=== PATIENT | female | born 1995 | race African-American/Black ===

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

== ENCOUNTER 2017-03-05 23:38 | Emergency (ER) | payer MEDICAID ==
[~2017-03-05] VITALS: Ht 177.8 cm; Wt 73.0 kg
[2017-03-05 23:51] VITALS: BP 111/81
== END 2017-03-06 07:27 | disposition home or self-care (01) ==
LOC: ER 03-06 00:04
DX: S50.862A Insect bite (nonvenomous) of left forearm, initial encounter (principal); S50.861A Insect bite (nonvenomous) of right forearm, initial encounter; W57.XXXA Bitten or stung by nonvenomous insect and other nonvenomous arthropods, initial encounter; Y93.89 Activity, other specified; Y92.89 Other specified places as the place of occurrence of the external cause; Y99.8 Other external cause status
CPT/HCPCS: 99282

== ENCOUNTER 2017-03-23 16:24 | Emergency (ER) | payer MEDICAID ==
[~2017-03-23] VITALS: Ht 177.8 cm; Wt 80.0 kg
[2017-03-23 20:38] VITALS: BP 128/65
[2017-03-23] MEDS ORDERED: MAGNESIUM/ALUMINUM HYDROXIDE/SIMETHICONE 30ML UDC PO STA (20:39)
[2017-03-23] MEDS ORDERED: FAMOTIDINE 20MG TABLET PO ONE (20:45)
== END 2017-03-23 22:17 | disposition home or self-care (01) ==
LOC: ER 16:29
DX: R10.13 Epigastric pain (principal); Z88.1 Allergy status to other antibiotic agents
CPT/HCPCS: 99283

== ENCOUNTER 2017-11-22 19:33 | Emergency (ER) | payer MEDICAID ==
[~2017-11-22] VITALS: Ht 177.8 cm; Wt 82.1 kg
[2017-11-22 22:00] VITALS: BP 128/64
[2017-11-22 22:42] LABS: BASOPHILS % 0.5 % (0.0-2.0); EOSINOPHILS % 3.3 % (0.0-5.0); HEMATOCRIT. 38.9 % (36.0-48.0); HEMOGLOBIN. 13.3 g/dL (12.0-16.0); LYMPHOCYTES % 52.4 % (20.0-50.0); MEAN CORPUSCULAR HEMOGLOBIN 27.1 pg (28.0-32.0); MEAN CORPUSCULAR VOLUME 79.3 fL (81.0-99.0); MEAN PLATELET VOLUME 10.5 fl (7.4-10.4); MONOCYTES % 13.3 % (2.0-8.0); NEUTROPHILS % 30.5 % (40.0-76.0); PLATELET 166 x1000/uL (130-400); RED BLOOD CELL COUNT 4.91 mill/uL (4.2-5.4); RED CELL DISTRIBUTION WIDTH 13.1 % (11.6-14.6)
[2017-11-22 22:46] LABS: CHLORIDE 108 mEq/L (98-107)
[2017-11-22 22:56] LABS: B-HCG QUANTITATIVE < 1 mIU/mL (<3)
[2017-11-23 00:22] LABS: CLARITY URINE CLEAR (CLEAR); COLOR URINE YELLOW (YELLOW); KETONES URINE NEGATIVE (NEGATIVE); LEUKOCYTE ESTERASE URINE NEGATIVE (NEGATIVE); NITRITE URINE NEGATIVE (NEGATIVE); OCCULT BLOOD URINE NEGATIVE (NEGATIVE); PH URINE 6.5 (4.5-8.0); PROTEIN URINE NEGATIVE (NEGATIVE); SPECIFIC GRAVITY URINE 1.029 (1.005-1.030)
== END 2017-11-23 00:45 | disposition home or self-care (01) ==
LOC: ER 19:33
DX: N93.9 Abnormal uterine and vaginal bleeding, unspecified (principal); R10.30 Lower abdominal pain, unspecified; R53.83 Other fatigue; R11.0 Nausea; Z88.0 Allergy status to penicillin
CPT/HCPCS: 36415; 76830; 76856; 80053; 81003; 81025; 84702; 85025; 86850; 86900; 99285

== ENCOUNTER 2019-01-18 18:05 | Emergency (ER) | payer MEDICAID ==
[~2019-01-18] VITALS: Ht 170.2 cm; Wt 80.0 kg
[2019-01-18] MEDS ORDERED: IBUPROFEN 600MG TABLET PO ONE (22:00)
[2019-01-18] MEDS ORDERED: ACETAMINOPHEN 500MG TABLET PO ONE (22:00)
[2019-01-19 00:11] VITALS: BP 120/83
== END 2019-01-19 00:29 | disposition home or self-care (01) ==
LOC: ER 18:05
DX: M54.9 Dorsalgia, unspecified (principal); Z88.3 Allergy status to other anti-infective agents
CPT/HCPCS: 71045; 81025; 93005; 99283

== ENCOUNTER 2019-04-19 16:11 | Emergency (ER) | payer MEDICAID ==
[~2019-04-19] VITALS: Ht 177.8 cm; Wt 87.0 kg
[2019-04-19 16:47] VITALS: BP 126/44
== END 2019-04-19 19:03 | disposition home or self-care (01) ==
LOC: ER 16:11
DX: H61.21 Impacted cerumen, right ear (principal); Z88.0 Allergy status to penicillin
CPT/HCPCS: 99282

== ENCOUNTER 2020-03-30 14:04 | Emergency (ER) | payer MEDICAID ==
[~2020-03-30] VITALS: Ht 177.8 cm; Wt 82.0 kg
[2020-03-30] MEDS ORDERED: ACETAMINOPHEN 325MG TABLET PO STA (14:56)
[2020-03-30 16:29] VITALS: BP 123/82
[2020-03-30 16:30] LABS: CLARITY URINE CLEAR (CLEAR); COLOR URINE YELLOW (YELLOW); KETONES URINE NEGATIVE (NEGATIVE); LEUKOCYTE ESTERASE URINE NEGATIVE (NEGATIVE); NITRITE URINE NEGATIVE (NEGATIVE); OCCULT BLOOD URINE NEGATIVE (NEGATIVE); PROTEIN URINE NEGATIVE (NEGATIVE); SPECIFIC GRAVITY URINE 1.023 (1.005-1.030); UROBILINOGEN URINE 0.2 E.U./dL (0.2-1.0)
[2020-03-30 17:02] LABS: BASOPHILS % 0.6 % (0.0-2.0); EOSINOPHILS % 2.1 % (0.0-5.0); HEMATOCRIT. 39.4 % (36.0-48.0); HEMOGLOBIN. 13.1 g/dL (12.0-16.0); LYMPHOCYTES % 34.6 % (20.0-50.0); MEAN CORPUSCULAR HEMOGLOBIN 26.9 pg (28.0-32.0); MEAN CORPUSCULAR VOLUME 80.8 fL (81.0-99.0); MEAN PLATELET VOLUME 11.2 fl (7.4-10.4); MONOCYTES % 9.9 % (2.0-8.0); NEUTROPHILS % 52.8 % (40.0-76.0); PLATELET 186 x1000/uL (130-400); RED BLOOD CELL COUNT 4.88 mill/uL (4.2-5.4); RED CELL DISTRIBUTION WIDTH 13.7 % (11.6-14.6)
[2020-03-30 17:09] LABS: CHLORIDE 106 mEq/L (98-107)
[2020-03-30 17:19] LABS: B-HCG QUANTITATIVE < 1 mIU/mL (<3)
== END 2020-03-30 17:55 | disposition home or self-care (01) ==
LOC: ER 14:04
DX: N93.8 Other specified abnormal uterine and vaginal bleeding (principal); Z88.0 Allergy status to penicillin
CPT/HCPCS: 36415; 76830; 76856; 80053; 81003; 81025; 84702; 85025; 86850; 86900; 99284

== ENCOUNTER 2021-02-03 09:31 | Emergency (ER) | payer MEDICAID ==
[~2021-02-03] VITALS: Ht 177.8 cm; Wt 79.0 kg
[2021-02-03 09:37] VITALS: BP 122/60
== END 2021-02-03 11:31 | disposition home or self-care (01) ==
LOC: ER 09:31
DX: Z48.02 Encounter for removal of sutures (principal)
CPT/HCPCS: 99281; Z7610

== ENCOUNTER 2021-08-11 13:38 | Emergency (ER) | payer MEDICAID ==
[~2021-08-11] VITALS: Ht 177.8 cm; Wt 88.8 kg
[2021-08-11 13:45] VITALS: BP 118/54
[2021-08-11] MEDS ORDERED: ACETAMINOPHEN 500MG TABLET PO ONE (14:30)
[2021-08-11 15:02] LABS: CLARITY URINE CLEAR (CLEAR); COLOR URINE YELLOW (YELLOW); KETONES URINE NEGATIVE (NEGATIVE); LEUKOCYTE ESTERASE URINE NEGATIVE (NEGATIVE); NITRITE URINE NEGATIVE (NEGATIVE); OCCULT BLOOD URINE NEGATIVE (NEGATIVE); PROTEIN URINE NEGATIVE (NEGATIVE); SPECIFIC GRAVITY URINE 1.017 (1.005-1.030); UROBILINOGEN URINE 0.2 E.U./dL (0.2-1.0)
== END 2021-08-11 17:44 | disposition home or self-care (01) ==
LOC: ER 13:38
DX: O34.11 Maternal care for benign tumor of corpus uteri, first trimester (principal); Z3A.01 Less than 8 weeks gestation of pregnancy; Z88.0 Allergy status to penicillin
CPT/HCPCS: 76810; 81003; 81025; 99284

== ENCOUNTER 2021-12-11 15:04 | Observation (INO) | payer MEDICAID ==
[~2021-12-11] VITALS: Ht 165.1 cm; Wt 90.7 kg
[2021-12-11] MEDS ORDERED: PREN1TAB78 MT (16:21)
== END 2021-12-11 18:15 | disposition home or self-care (01) ==
LOC: 8 EST LDRP 15:04
PROVIDERS: ADMIT Obstetrics & Gynecology; ATTEND Obstetrics & Gynecology
DX: O26.892 Other specified pregnancy related conditions, second trimester (principal); R10.31 Right lower quadrant pain; O21.2 Late vomiting of pregnancy; Z3A.25 25 weeks gestation of pregnancy
CPT/HCPCS: 59025; 76805; 76810; 76817; G0378; 99281; G0379

== ENCOUNTER 2021-12-31 22:46 | Observation (INO) | payer MEDICAID ==
[~2021-12-31] VITALS: Ht 177.8 cm; Wt 90.7 kg
[~2021-12-31 22:46] MED LIST: PREN1TAB78 MT
[2021-12-31] MEDS ORDERED: ACETAMINOPHEN 325MG TABLET PO NR (23:45)
[2022-01-01 00:01] LABS: CLARITY URINE CLOUDY (CLEAR); COLOR URINE DARK YELLOW (YELLOW); KETONES URINE 2+ (NEGATIVE); LEUKOCYTE ESTERASE URINE 1+ (NEGATIVE); NITRITE URINE NEGATIVE (NEGATIVE); OCCULT BLOOD URINE NEGATIVE (NEGATIVE); PROTEIN URINE 1+ (NEGATIVE); SPECIFIC GRAVITY URINE 1.037 (1.005-1.030)
[2022-01-01] MEDS ORDERED: NITROFURANTOIN 100MG M/M CAPSULE PO NR (01:15)
== END 2022-01-01 01:50 | disposition home or self-care (01) ==
LOC: 8 EST LDRP 22:46
PROVIDERS: ADMIT Obstetrics & Gynecology; ATTEND Obstetrics & Gynecology
DX: O26.893 Other specified pregnancy related conditions, third trimester (principal); R10.9 Unspecified abdominal pain; Z3A.28 28 weeks gestation of pregnancy
CPT/HCPCS: 76815; 76818; 81003; G0378; 99281

== ENCOUNTER 2022-10-09 08:13 | Emergency (ER) | payer MEDICAID, OTHER ==
[~2022-10-09] VITALS: Ht 175.3 cm; Wt 82.0 kg
[2022-10-09 08:20] VITALS: BP 121/80
[2022-10-09] MEDS ORDERED: FLUORESCEIN SODIUM 1MG/STRIP RIGHTEYE ONE (09:45)
[2022-10-09] MEDS ORDERED: TETRACAINE 0.5% OPHTH DROPS 4ML RIGHTEYE ONE (09:45)
[2022-10-09] MEDS ORDERED: ACETAMINOPHEN 325MG TABLET PO ONE (10:00)
== END 2022-10-09 12:06 | disposition home or self-care (01) ==
LOC: ER 08:39
DX: M26.601 Right temporomandibular joint disorder, unspecified (principal); Z88.0 Allergy status to penicillin
CPT/HCPCS: 99283

== ENCOUNTER 2025-01-24 14:00 | Emergency (ER) | payer OTHER ==
[~2025-01-24] VITALS: Ht 177.8 cm; Wt 86.0 kg
[2025-01-24 14:22] VITALS: O2SAT 100
[2025-01-24] MEDS: KETOROLAC 30MG/ML VIAL IM ONE (15:48)
[2025-01-24] MEDS ORDERED: ACET-2708 MT (16:27)
[2025-01-24] MEDS ORDERED: KETO10TA2 MT (16:27)
[2025-01-24] MEDS ORDERED: CLIN150C2 MT ×2 (16:27→16:32)
[2025-01-24 17:00] VITALS: BP 127/67; PULSE 83; RESP 16; TEMP 36.6; O2SAT 100
== END 2025-01-24 17:10 | disposition home or self-care (01) ==
LOC: ER 14:00
DX: K08.89 Other specified disorders of teeth and supporting structures (principal); Z79.899 Other long term (current) drug therapy; Z88.0 Allergy status to penicillin
CPT/HCPCS: 99283; 81025; 96372; J1885

== ENCOUNTER 2025-03-21 12:35 | Emergency (ER) | payer OTHER ==
[~2025-03-21] VITALS: Ht 177.8 cm; Wt 81.0 kg
[~2025-03-21 12:35] MED LIST changes: +ACET-2708 MT; +CLIN150C2 MT; +KETO10TA2 MT
[2025-03-21 12:48] VITALS: O2SAT 99
[2025-03-21 14:19] LABS: INFLUENZA TYPE A Presumptive Negative (Pres. Neg.); INFLUENZA TYPE B Presumptive Negative (Pres. Neg.); RESPIRATORY SYNCYTIAL VIRUS Not Detected (Not Detectd)
[2025-03-21 14:35] LABS: CLARITY URINE CLOUDY (CLEAR); COLOR URINE YELLOW (YELLOW); GLUCOSE URINE NEGATIVE (NEGATIVE); KETONES URINE NEGATIVE (NEGATIVE); LEUKOCYTE ESTERASE URINE 2+ (NEGATIVE); NITRITE URINE POSITIVE (NEGATIVE); OCCULT BLOOD URINE 2+ (NEGATIVE); PH URINE 6.0 (4.5-8.0); PROTEIN URINE 2+ (NEGATIVE); SPECIFIC GRAVITY URINE 1.018 (1.005-1.030); UROBILINOGEN URINE 1.0 E.U./dL (0.2-1.0)
[2025-03-21 14:47] LABS: SQUAMOUS EPITHELIAL CELL URINE 1+ /lpf (RARE/1+)
[2025-03-21 14:48] LABS: BACTERIA URINE 3+; RBC URINE 0-2 /hpf (0-2); WBC URINE 50-100 /hpf (0-2)
[2025-03-21] MEDS ORDERED: SULF1TAB48 MT (15:08)
[2025-03-21] MEDS ORDERED: IBUP-2030 MT (15:08)
[2025-03-21 15:22] VITALS: BP 119/68; PULSE 86; RESP 16; TEMP 37.4; O2SAT 100
== END 2025-03-21 15:24 | disposition home or self-care (01) ==
LOC: ER 12:35
DX: N12 Tubulo-interstitial nephritis, not specified as acute or chronic (principal); Z88.0 Allergy status to penicillin
CPT/HCPCS: 81003; 81025; 87077; 87186; 87420; 87426; 87804; 99283